=== PATIENT | female | born 1985 | race Two or more races ===

== ENCOUNTER 2018-04-15 21:52 | Emergency (ER) | payer OTHER ==
[2018-04-15 22:38] LABS: U PREG PATIENT POSITIVE (NEG)
[2018-04-15 22:39] LABS: NEG OBC UR NEG; POS OBC UR POS
[2018-04-15 23:00] LABS: ADD MAN DIFF? NO
[2018-04-15 23:11] LABS: BASO # 0.1 x10^3/uL (0.0-0.2); BASO % 1 % (0-3); EOS # 0.2 x10^3/uL (0.0-0.7); EOS % 2 % (0-3); HEMATOCRIT 37.1 % (36.0-47.0); HEMOGLOBIN 12.1 g/dL (12.0-15.5); LYMPH % 23 % (24-48); MEAN CORPUSCULAR HEMOGLOBIN 23 pg (25-35); MEAN CORPUSCULAR HGB CONC 33 g/dL (31-37); MEAN CORPUSCULAR VOLUME 72 fL (79-100); MONO # 0.8 x10^3/uL (0.0-1.1); MONO % 6 % (0-9); NEUT # 8.9 x10^3uL (1.8-7.7); NEUT % 68 % (31-73); PLATELET COUNT 229 x10^3/uL (140-400); RED BLOOD COUNT 5.17 x10^6/uL (3.50-5.40); RED CELL DISTRIBUTION WIDTH 14.9 % (11.5-14.5); WHITE BLOOD COUNT 13.1 x10^3/uL (4.0-11.0)
[2018-04-15 23:18] LABS: BILIRUBIN,URINE NEGATIVE (NEG); CLARITY,URINE CLEAR; COLOR,URINE YELLOW; GLUCOSE,URINE NEGATIVE (NEG); NITRITE,URINE NEGATIVE (NEG); PROTEIN,URINE NEGATIVE (NEG-TRACE); UROBILINOGEN,URINE 0.2 mg/dL (0.2 mg/dL)
[2018-04-15 23:25] LABS: ANION GAP 9 (6-14); BLOOD UREA NITROGEN 10 mg/dL (7-20); CALCIUM 9.3 mg/dL (8.5-10.1); CARBON DIOXIDE 25 mmol/L (21-32); CHLORIDE 103 mmol/L (98-107); CREATININE 0.6 mg/dL (0.6-1.0); GFR 115.9; GLUCOSE 90 mg/dL (70-99); POTASSIUM 3.5 mmol/L (3.5-5.1); SODIUM 137 mmol/L (136-145)
[2018-04-15 23:39] LABS: BACTERIA,URINE 0 /HPF (0-FEW); RBC,URINE OCC /HPF (0-2); WBC,URINE OCC /HPF (0-4)
[2018-04-15 23:40] LABS: SQUAMOUS EPITHELIAL CELL,UR FEW /LPF
[2018-04-16 00:02] LABS: D-DIMER 0.29 ug/mlFEU (0.00-0.50)
== END 2018-04-16 00:55 | disposition home or self-care (01) ==
LOC: ER 04-16 00:55
DX: R07.89 Other chest pain (principal); R51 Headache; Z33.1 Pregnant state, incidental
CPT/HCPCS: 36415; 80048; 81001; 81025; 85025; 85379; 93005; 99285-25

== ENCOUNTER 2018-06-30 22:52 | Observation (INO) | payer SELFPAY ==
[2018-04-16 00:34] VITALS: BP 102/66
[~2018-06-30 22:52] MED LIST: PNV1TABL31 PO
[2018-06-30] MEDS ORDERED: MAG HYDROX/ALUMINUM HYD/SIMETH 30 ML ORAL.SUSP PO PRN (23:00)
[2018-06-30] MEDS ORDERED: ONDANSETRON PF 4 MG/2 ML VIAL. IV PRN (23:00)
[2018-06-30] MEDS ORDERED: IV RINGERS,LACTATED 1000ML 1,000 ML IV PRN (23:00)
[2018-06-30 23:21] LABS: BILIRUBIN,URINE NEGATIVE (NEG); CLARITY,URINE CLOUDY; COLOR,URINE YELLOW; NITRITE,URINE POSITIVE (NEG); PROTEIN,URINE 100 mg/dL (NEG-TRACE); UROBILINOGEN,URINE 0.2 mg/dL (0.2 mg/dL)
[2018-06-30 23:29] LABS: BACTERIA,URINE MANY /HPF (0-FEW); SQUAMOUS EPITHELIAL CELL,UR MOD /LPF; WBC,URINE TNTC /HPF (0-4)
[2018-06-30 23:34] LABS: AMPHETAMINE/METHAMPHETAMINE NEG (NEG); BARBITURATES NEG (NEG); BENZODIAZEPINES NEG (NEG); CANNABINOIDS NEG (NEG); COCAINE NEG (NEG); METHADONE NEG (NEG); OPIATES NEG (NEG); PHENCYCLIDINE NEG (NEG)
[2018-06-30 23:47] LABS: BASO # 0.1 x10^3/uL (0.0-0.2); BASO % 1 % (0-3); EOS # 0.2 x10^3/uL (0.0-0.7); EOS % 1 % (0-3); HEMATOCRIT 36.1 % (36.0-47.0); HEMOGLOBIN 11.8 g/dL (12.0-15.5); LYMPH % 18 % (24-48); MEAN CORPUSCULAR HEMOGLOBIN 24 pg (25-35); MEAN CORPUSCULAR HGB CONC 33 g/dL (31-37); MEAN CORPUSCULAR VOLUME 72 fL (79-100); MONO # 0.8 x10^3/uL (0.0-1.1); MONO % 5 % (0-9); NEUT # 13.2 x10^3uL (1.8-7.7); NEUT % 76 % (31-73); PLATELET COUNT 237 x10^3/uL (140-400); RED BLOOD COUNT 4.98 x10^6/uL (3.50-5.40); RED CELL DISTRIBUTION WIDTH 13.8 % (11.5-14.5); WHITE BLOOD COUNT 17.3 x10^3/uL (4.0-11.0)
[2018-07-01 03:33] LABS: % ATYL 1 % (0-0); % BANDS 2 % (0-9); % EOS 2 % (0-5); % LYMPHS 29 % (24-48); % MONOS 3 % (0-10); % SEGS 63 % (35-66)
[2018-07-01 03:34] LABS: HYPOCHROMIA SLIGHT; MICROCYTOSIS SLIGHT; PLT ESTIMATE ADEQUATE (ADEQUATE)
== END 2018-07-01 | disposition home or self-care (01) ==
LOC: 3 SO LND 22:52
PROVIDERS: ADMIT Obstetrics & Gynecology; ATTEND Obstetrics & Gynecology
DX: O26.893 Other specified pregnancy related conditions, third trimester (principal); R19.7 Diarrhea, unspecified; Z3A.22 22 weeks gestation of pregnancy
CPT/HCPCS: 36415; 80307; 81001; 85007; 85025; 86592; 86703; 86762; 86850; 86900; 86901; 87340; G0378; G0379; G0479

== ENCOUNTER 2018-07-07 13:49 | Observation (INO) | payer SELFPAY ==
[2018-04-16 00:34] VITALS: BP 102/66
[2018-07-07] MEDS ORDERED: IV RINGERS,LACTATED 1000ML 1,000 ML IV SCH (14:29)
[2018-07-07 14:42] LABS: BILIRUBIN,URINE NEGATIVE (NEG); CLARITY,URINE CLOUDY; COLOR,URINE YELLOW; NITRITE,URINE POSITIVE (NEG); PH,URINE 6.5; PROTEIN,URINE >=300 mg/dL (NEG-TRACE); UROBILINOGEN,URINE 0.2 mg/dL (0.2 mg/dL)
[2018-07-07 14:49] LABS: BACTERIA,URINE MANY /HPF (0-FEW); SQUAMOUS EPITHELIAL CELL,UR FEW /LPF; WBC,URINE >40 /HPF (0-4)
[2018-07-07 14:53] LABS: RBC,URINE 20-40 /HPF (0-2)
[2018-07-07] MEDS ORDERED: cefTRIAXone IM 1 GM VIAL IM ONE (16:30)
[2018-07-07] MEDS ORDERED: ACETAMINOPHEN 500 MG TABLET PO ONE (17:00)
--- NOTE | 2018-07-07 17:21 | RAD ---
Exam performed: OB sonogram greater than 14 weeks. History: Patient is unsure of dates Date of Service: 07/07/2018 ,comparison: None available. Technique: Transabdominal. Findings: Single intrauterine fetus is seen in cephalic presentation.The maturity is as follows. BPD 4.76 cm (20 weeks and 3 days) Head circumference 19.07 cm (21 weeks and 2 days) Abdominal circumference 18.0 cm (22 weeks and 6 days) Femur length 3.95 cm (22 weeks and 5 days) HC to AC ratio 1.06 . heart rate measures 145 beats per minute. There is adequate amniotic fluid volume . Composite maturity is 21 weeks and 6 days , corresponding to the CHULA off to 2018. Cervix measures 4.9 cm. Estimated weight is 513 grams. Placenta is posterior and partially covering the internal os. Anatomical survey was not performed. Impression: Single live intrauterine fetus in cephalic presentation of maturity 21 weeks and 6 days. Partial placenta previa. Attention on follow-up exams. Electronically signed by: Tonie Hutchins MD (07/07/2018 5:18 PM) [facility]
== END 2018-07-07 17:25 | disposition home or self-care (01) ==
LOC: 3 SO LND 13:49
PROVIDERS: ADMIT Obstetrics & Gynecology; ATTEND Obstetrics & Gynecology
DX: O46.92 Antepartum hemorrhage, unspecified, second trimester (principal); O99.89 Other specified diseases and conditions complicating pregnancy, childbirth and the puerperium; M54.9 Dorsalgia, unspecified; Z3A.23 23 weeks gestation of pregnancy
CPT/HCPCS: 76815; 81001; 87086; 87186; 96372; G0378; G0379; J0696

== ENCOUNTER 2018-11-09 00:47 | Inpatient (IN) | payer SELFPAY ==
[~2018-11-09] VITALS: Ht 150.5 cm; Wt 75.1 kg
[2018-11-09 00:45] VITALS: BP 103/71
[2018-11-09 02:05] LABS: BILIRUBIN,URINE NEGATIVE (NEG); CLARITY,URINE CLEAR; COLOR,URINE YELLOW; NITRITE,URINE POSITIVE (NEG); PROTEIN,URINE NEGATIVE (NEG-TRACE); UROBILINOGEN,URINE 0.2 mg/dL (0.2 mg/dL)
[2018-11-09 02:13] LABS: BARBITURATES NEG (NEG); BENZODIAZEPINES NEG (NEG); CANNABINOIDS NEG (NEG); COCAINE NEG (NEG); METHADONE NEG (NEG); OPIATES NEG (NEG); PHENCYCLIDINE NEG (NEG)
[2018-11-09 02:14] LABS: AMPHETAMINE/METHAMPHETAMINE NEG (NEG)
[2018-11-09 02:18] LABS: BACTERIA,URINE MODERATE /HPF (0-FEW); RBC,URINE OCC /HPF (0-2); SQUAMOUS EPITHELIAL CELL,UR MOD /LPF
--- NOTE | 2018-11-09 02:53 | RAD ---
INDICATION: SPOTTING COMPARISON: June 2018 TECHNIQUE: Grayscale and color ultrasound images uterus and adnexa. Transabdominal and transvaginal images obtained. FINDINGS: Intrauterine is identified. Vertex presentation at time of exam. Fluid in stomach. kidneys are seen. Fluid within bladder. heartbeat 132. Amniotic fluid index 7.9. Placenta is posterior and low-lying. Tip of the placenta appears close to the internal os. Estimated gestational age is 37 weeks and 5 days with estimated due date of 11/25/2018. Estimated weight 3241 g. IMPRESSION: 1. Intrauterine is identified with a positive heartbeat. 2. The placenta is posterior in location and low lying with the placental age close to the internal os. Continued follow-up will be needed given this finding. Electronically signed by: Juvenal Mccoy MD (11/09/2018 2:50 AM) [facility]
[2018-11-09] MEDS ORDERED: IBUPROFEN 400 MG TABLET. PO PRN (03:45)
[2018-11-09] MEDS ORDERED: TERBUTALINE 1 MG/ML VIAL. SQ PRN (03:45)
[2018-11-09] MEDS ORDERED: ONDANSETRON PF 4 MG/2 ML VIAL. IV PRN ×2 (03:45→10:45)
[2018-11-09] MEDS ORDERED: ACETAMINOPHEN 325 MG TABLET. PO PRN (03:45)
[2018-11-09] MEDS ORDERED: NALBUPHINE 10 MG/ML AMPUL. IV PRN ×2 (03:45)
[2018-11-09] MEDS ORDERED: OXYTOCIN 30 UNIT/500 ML PREMIX 500 ML IV PRN ×2 (03:45→10:45)
[2018-11-09] MEDS ORDERED: CITRIC ACID/SODIUM CITRATE 30 ML SOLUTION. PO PRN (03:45)
[2018-11-09] MEDS ORDERED: MAG HYDROX/ALUMINUM HYD/SIMETH 30 ML ORAL.SUSP PO PRN ×2 (03:45→10:45)
[2018-11-09] MEDS ORDERED: LIDOCAINE 1% PF 30 ML VIAL. INJ PRN (03:45)
[2018-11-09] MEDS ORDERED: 0.9 % SODIUM CHLORIDE 10 ML DISP.SYRIN. IV PRN ×2 (03:45→10:45)
[2018-11-09] MEDS: IV RINGERS,LACTATED 1000ML 1,000 ML IV SCH ×6 (04:25→23:53)
[2018-11-09 04:32] LABS: BASO % 0 % (0-3); EOS # 0.1 x10^3/uL (0.0-0.7); EOS % 1 % (0-3); HEMATOCRIT 36.9 % (36.0-47.0); HEMOGLOBIN 11.7 g/dL (12.0-15.5); LYMPH # 2.7 x10^3/uL (1.0-4.8); LYMPH % 28 % (24-48); MEAN CORPUSCULAR HEMOGLOBIN 22 pg (25-35); MEAN CORPUSCULAR HGB CONC 32 g/dL (31-37); MEAN CORPUSCULAR VOLUME 70 fL (79-100); MONO # 0.4 x10^3/uL (0.0-1.1); MONO % 4 % (0-9); NEUT # 6.3 x10^3uL (1.8-7.7); NEUT % 67 % (31-73); PLATELET COUNT 175 x10^3/uL (140-400); RED BLOOD COUNT 5.27 x10^6/uL (3.50-5.40); WHITE BLOOD COUNT 9.4 x10^3/uL (4.0-11.0)
[2018-11-09 07:09] LABS: PLT ESTIMATE ADEQUATE (ADEQUATE)
[2018-11-09 07:10] LABS: HYPOCHROMIA MOD
[2018-11-09 07:11] LABS: MICROCYTOSIS MOD
[2018-11-09] MEDS ORDERED: METHYLERGONOVINE MALEATE 0.2 MG/ML VIAL. IM ONE (08:30)
[2018-11-09] MEDS ORDERED: CITRIC ACID/SODIUM CITRATE 30 ML SOLUTION. PO ONE (08:30)
[2018-11-09] MEDS ORDERED: miSOPROStol 200 MCG TABLET PR ONE (08:30)
[2018-11-09] MEDS ORDERED: PENICILLIN G K 5,000,000 UNIT in IV DEXTROSE 5% 100ML 100 ML IV ONE (09:00)
--- NOTE | 2018-11-09 09:34 | PDOC1 ---
OB - History Hx of Present Care: None Ultrasounds: Abnormal US findings (marginal placenta previa) Obstetrical Complications: Other (placenta previa) Medical Complications: None Past Family/Social History * Past Medical, Surgical, Family and Obstetric Histories reviewed from chart. Rubella: Unknown RPR/VDRL: Unknown GBS Status: Unknown HBsAG: Unknown OB - Chief Complaint & HPI Date of Admission: Date of Admission: Nov 09, 2018 at 00:47 Chief Complaint/History : 5 Para: 4 EGA: 39 Reason for admission: vaginal bleeding Indication for : other (marginal placental previa with vaginal spotting) Admission Nurse Assessment Rev: Yes OB - Admission Exam Physical Exam Vitals: VS - Last 72 Hours, by Label Date Time Temp Pulse Resp B/P (MAP) Pulse Ox O2 Delivery O2 Flow Rate FiO2 11/09/18 00:45 98.1 74 18 103/71 (82) Room Air 98.1 HEENT: Normal Heart: Regular Rate Lungs: Clear Abdomen: Gravid, Non tender, Soft Extremities: Edema Reflexes: Normal Cervical Dilatation: 1cm Effacement: 25% Station: Ballotable Membranes: Intact Heart Rate: Normal Accelerations: Accelerations Present Decelerations: No decelerations Contractions on Admission: >10 Minutes Apart Intensity: Mild Text A: 39 wks Marginal Placenta Previa Vaginal spotting P: Admit for c/s. AUGUSTO ANGEL Jr, MD Nov 09, 2018 09:34
[2018-11-09] MEDS ORDERED: MORPHINE PF 5 MG/10 ML VIAL. ONE (09:40)
[2018-11-09] MEDS ORDERED: BUPIVACAINE MPF 0.75% DEXTROSE 2 ML AMPUL. ONE (09:43)
[2018-11-09] MEDS ORDERED: NALOXONE 0.4 MG/ML VIAL. IV PRN (10:00)
[2018-11-09] MEDS ORDERED: ATROPINE 0.5 MG/5 ML DISP.SYRINGE. IV PRN (10:00)
[2018-11-09] MEDS ORDERED: OXYTOCIN 10 UNIT/ML VIAL. ONE (10:03)
[2018-11-09] MEDS ORDERED: METOCLOPRAMIDE HCL 10 MG/2 ML VIAL. ONE (10:12)
--- NOTE | 2018-11-09 10:36 | PDOC4 ---
OB Operative Note Date: Nov 09, 2018 PRE OP DIAGNOSIS: Other (Placenta previa) POST OP DIAGNOSIS: Other (same) OPERATION PERFORMED: [facility] Surgeon Dr. Farrell Anesthesia: Regional (Spinal) Blood Loss 600 ml Specimen placenta and OB Findings: Position (Vertex), Sex (Female), (8/9), Weight (3130 Gram), Nuchal Cord (x1) Complications none Additional Remarks pt. AUGUSTO Dominguez Jr, MD Nov 09, 2018 10:36
[2018-11-09] MEDS ORDERED: ZOLPIDEM 5 MG TABLET. PO PRN (10:45)
[2018-11-09] MEDS ORDERED: KETOROLAC 30 MG/ML VIAL. IV PRN (10:45)
[2018-11-09] MEDS ORDERED: diphenhydrAMINE ORAL ELIXIR 12.5 MG/5 ML ML PO PRN (10:45)
[2018-11-09] MEDS ORDERED: SIMETHICONE 80 MG TAB.CHEW PO PRN (10:45)
--- NOTE | 2018-11-09 11:12 | OP ---
DATE OF SURGERY: 11/09/2018 PREOPERATIVE DIAGNOSES: 1. A 39 weeks intrauterine . 2. Limited to no care. 3. Marginal placenta previa with bleeding. POSTOPERATIVE DIAGNOSES: 1. A 39 weeks intrauterine . 2. Limited to no care. 3. Marginal placenta previa with bleeding. PROCEDURE: Primary low transverse section. SURGEON: Augusto Farrell MD. ANESTHESIA: Spinal. ESTIMATED BLOOD LOSS: 600 mL. COMPLICATIONS: None. FINDINGS: Viable female , Apgars 8 and 9, nuchal cord x 1, weight 3138 grams. Three-vessel cord placenta delivered manually intact. SUMMARY: Term gestation, presented to Labor and Delivery with complaints of vaginal bleeding and spotting at home. The patient had vaginal spotting upon admission to the hospital. Sonogram images were reviewed and showed appearance of a marginal placenta previa. She was counseled on the risks, benefits and expectations of a primary low transverse section and voiced clear understanding to proceed. DESCRIPTION OF PROCEDURE: The patient was taken to surgery suite and placed in dorsal supine position. She was prepped with ChloraPrep and draped in sterile fashion. After adequate anesthesia, a Pfannenstiel skin incision was made with scalpel down to and through the fascia. Fascia was extended laterally using curved Mccallum scissors. The superior edge of the fascia was grasped with two Saskia clamps and dissected free of the abdominal rectus muscles using blunt dissection along with Bovie cautery. The same process took place inferiorly. The abdominal rectus muscles were dissected bluntly at the midline. Peritoneum was grasped with 2 hemostats, entered sharply with Metzenbaum scissors. This incision was extended superiorly as well as inferiorly. The Alexys ring retractor was placed. A low transverse hysterotomy incision made with scalpel down to the amniotic sac. Hysterotomy incision was then extended laterally and superiorly digitally. Amniotomy was performed with Allis clamp, which elicited moderate amount of clear fluid. With aid of fundal pressure, the infant's head was delivered in a smooth atraumatic manner. Nuchal cord x 1 was visualized and reduced. Additional fundal pressure was utilized to deliver the anterior shoulder, posterior shoulder, rest of the female . Infant was suctioned with a bulb syringe orally and nasally. Umbilical cord was clamped twice and cut and viable female infant was handed to waiting nursing staff. Umbilical cord blood was then obtained. Three-vessel cord placenta was delivered manually intact. The uterus was exteriorized and cleared of clot and debris with a moist lap. Hysterotomy incision was reapproximated using 1-0 Vicryl suture in running locked fashion and imbricated layer of 1-0 Vicryl suture in running fashion was utilized for better hemostasis. Uterus palpated firm. Fallopian tubes and ovaries appeared normal bilaterally. The uterus then returned to the abdomen. Hysterotomy incision was reviewed and hemostatic. The pericolic gutters were cleared of clot and debris with moist lap. Interceed was placed over the hysterotomy incision in an inverted T fashion. The Alexys ring retractor was removed. The peritoneum was reapproximated using #1 Vicryl suture in running fashion. Fascia was reapproximated using 0 Vicryl suture in a running fashion. Skin was reapproximated using 4-0 Vicryl suture in subcuticular manner. The patient tolerated the procedure well, was sent to recovery room in stable condition. Sponge and needle count correct x 3. AUGUSTO FARRELL MD DR: ESTRELLA/johnathon JOB#: [id number] / [id number]
[2018-11-09] MEDS: PENICILLIN G K 2,500,000 UNIT in IV DEXTROSE 5% 50 ML IV SCH ×2 (13:00→17:00)
[2018-11-09] MEDS: FERROUS SULFATE 325 MG TABLET. PO SCH (17:00)
[2018-11-09 20:20] VITALS: BP 94/52
[2018-11-09 23:58] VITALS: BP 92/60
[2018-11-10 04:45] VITALS: BP 93/61
[2018-11-10 05:07] LABS: BASO % 0 % (0-3); EOS % 0 % (0-3); HEMATOCRIT 27.3 % (36.0-47.0); HEMOGLOBIN 8.6 g/dL (12.0-15.5); LYMPH # 2.1 x10^3/uL (1.0-4.8); LYMPH % 17 % (24-48); MEAN CORPUSCULAR HEMOGLOBIN 22 pg (25-35); MEAN CORPUSCULAR HGB CONC 31 g/dL (31-37); MEAN CORPUSCULAR VOLUME 71 fL (79-100); MONO # 0.6 x10^3/uL (0.0-1.1); MONO % 5 % (0-9); NEUT # 9.4 x10^3uL (1.8-7.7); NEUT % 78 % (31-73); PLATELET COUNT 153 x10^3/uL (140-400); RED BLOOD COUNT 3.87 x10^6/uL (3.50-5.40); RED CELL DISTRIBUTION WIDTH 13.6 % (11.5-14.5); WHITE BLOOD COUNT 12.1 x10^3/uL (4.0-11.0)
[2018-11-10 11:25] VITALS: BP 101/66
[2018-11-10] MEDS: DOCUSATE SODIUM 100 MG CAPSULE. PO PRN (14:17)
[2018-11-10] MEDS: FERROUS SULFATE 325 MG TABLET. PO SCH (14:18)
[2018-11-10] MEDS: oxyCODONE/APAP 5/325 1 TAB TABLET PO PRN ×2 (14:18→20:27)
[2018-11-10 17:13] VITALS: BP 93/53
--- NOTE | 2018-11-10 17:41 | PDOC ---
OB Progress Note Date of Service 11/10/18 Time of Evaluation 1740 Notes Pt. feeling well. Pain controlled. Lab Laboratory Tests Test 11/09/18 01:30 11/09/18 03:55 11/10/18 04:40 Urine Collection Type Unknown Urine Color Yellow Urine Clarity Clear Urine pH 7.0 Urine Specific Sharon 1.010 Urine Protein Negative mg/dL (NEG-TRACE) Urine Glucose (UA) Negative mg/dL (NEG) Urine Ketones (Stick) Negative mg/dL (NEG) Urine Blood Moderate (NEG) Urine Nitrite Positive (NEG) Urine Bilirubin Negative (NEG) Urine Urobilinogen Dipstick 0.2 mg/dL (0.2 mg/dL) Urine Leukocyte Esterase Moderate (NEG) Urine RBC Occ /HPF (0-2) Urine WBC 5-10 /HPF (0-4) Urine Squamous Epithelial Cells Mod /LPF Urine Bacteria Moderate /HPF (0-FEW) Urine Opiates Screen Neg (NEG) Urine Methadone Screen Neg (NEG) Urine Barbiturates Neg (NEG) Urine Phencyclidine Screen Neg (NEG) Urine Amphetamine/Methamphetamine Neg (NEG) Urine Benzodiazepines Screen Neg (NEG) Urine Cocaine Screen Neg (NEG) Urine Cannabinoids Screen Neg (NEG) Urine Ethyl Alcohol Neg (NEG) White Blood Count 9.4 x10^3/uL (4.0-11.0) 12.1 x10^3/uL (4.0-11.0) Red Blood Count 5.27 x10^6/uL (3.50-5.40) 3.87 x10^6/uL (3.50-5.40) Hemoglobin 11.7 g/dL (12.0-15.5) 8.6 g/dL (12.0-15.5) Hematocrit 36.9 % (36.0-47.0) 27.3 % (36.0-47.0) Mean Corpuscular Volume 70 fL (79-100) 71 fL (79-100) Mean Corpuscular Hemoglobin 22 pg (25-35) 22 pg (25-35) Mean Corpuscular Hemoglobin Concent 32 g/dL (31-37) 31 g/dL (31-37) Red Cell Distribution Width 14.0 % (11.5-14.5) 13.6 % (11.5-14.5) Platelet Count 175 x10^3/uL (140-400) 153 x10^3/uL (140-400) Neutrophils (%) (Auto) 67 % (31-73) 78 % (31-73) Lymphocytes (%) (Auto) 28 % (24-48) 17 % (24-48) Monocytes (%) (Auto) 4 % (0-9) 5 % (0-9) Eosinophils (%) (Auto) 1 % (0-3) 0 % (0-3) Basophils (%) (Auto) 0 % (0-3) 0 % (0-3) Neutrophils # (Auto) 6.3 x10^3uL (1.8-7.7) 9.4 x10^3uL (1.8-7.7) Lymphocytes # (Auto) 2.7 x10^3/uL (1.0-4.8) 2.1 x10^3/uL (1.0-4.8) Monocytes # (Auto) 0.4 x10^3/uL (0.0-1.1) 0.6 x10^3/uL (0.0-1.1) Eosinophils # (Auto) 0.1 x10^3/uL (0.0-0.7) 0.0 x10^3/uL (0.0-0.7) Basophils # (Auto) 0.0 x10^3/uL (0.0-0.2) 0.0 x10^3/uL (0.0-0.2) Platelet Estimate Adequate (ADEQUATE) Large Platelets Few Hypochromasia Mod Microcytosis Mod Treponema pallidum Antibody Nonreactive (Nonreactive) Laboratory Tests Test 11/10/18 04:40 White Blood Count 12.1 x10^3/uL (4.0-11.0) Red Blood Count 3.87 x10^6/uL (3.50-5.40) Hemoglobin 8.6 g/dL (12.0-15.5) Hematocrit 27.3 % (36.0-47.0) Mean Corpuscular Volume 71 fL (79-100) Mean Corpuscular Hemoglobin 22 pg (25-35) Mean Corpuscular Hemoglobin Concent 31 g/dL (31-37) Red Cell Distribution Width 13.6 % (11.5-14.5) Platelet Count 153 x10^3/uL (140-400) Neutrophils (%) (Auto) 78 % (31-73) Lymphocytes (%) (Auto) 17 % (24-48) Monocytes (%) (Auto) 5 % (0-9) Eosinophils (%) (Auto) 0 % (0-3) Basophils (%) (Auto) 0 % (0-3) Neutrophils # (Auto) 9.4 x10^3uL (1.8-7.7) Lymphocytes # (Auto) 2.1 x10^3/uL (1.0-4.8) Monocytes # (Auto) 0.6 x10^3/uL (0.0-1.1) Eosinophils # (Auto) 0.0 x10^3/uL (0.0-0.7) Basophils # (Auto) 0.0 x10^3/uL (0.0-0.2) Medications Current Medications Sodium Chloride (Normal Saline Flush) 3 ml QSHIFT PRN IV AFTER MEDS AND BLOOD DRAWS; Start 11/09/18 at 03:45; Stop 11/10/18 at 09:33; Status DC Ringer's Solution 1,000 ml @ 125 mls/hr Q8H IV Last administered on 11/09/18at 23:53; Start 11/09/18 at 03:42; Stop 11/10/18 at 09:33; Status DC Nalbuphine HCl (Nubain) 5 mg PRN Q1HR PRN IV Mild to moderate labor pain; Start 11/09/18 at 03:45; Stop 11/10/18 at 09:35; Status DC Nalbuphine HCl (Nubain) 10 mg PRN Q1HR PRN IV Severe labor pain; Start at 03:45; Stop 11/10/18 at 09:35; Status DC Acetaminophen (Tylenol) 650 mg PRN Q6HRS PRN PO MILD PAIN / TEMP; Start at 03:45 Ondansetron HCl (Zofran) 4 mg PRN Q4HRS PRN IV NAUSEA/VOMITING 1ST CHOICE; Start 11/09/18 at 03:45; Stop 11/09/18 at 11:04; Status DC Al Hydroxide/Mg Hydroxide (Mylanta Plus Xs) 30 ml PRN Q4HRS PRN PO HEARTBURN / GAS; Start 11/09/18 at 03:45; Stop 11/10/18 at 13:19; Status DC Citric Acid/ Sodium Citrate (Bicitra) 30 ml 1X PRN PRN PO DYSPEPSIA; Start at 03:45; Stop 11/10/18 at 03:44; Status DC Terbutaline Sulfate (Brethine) 0.25 mg 1X PRN PRN SQ SEE COMMENTS; Start at 03:45; Stop 11/10/18 at 03:44; Status DC Lidocaine HCl (Xylocaine 1% Pf 30ml Vial) 30 ml 1X PRN PRN INJ SEE COMMENTS; Start 11/09/18 at 03:45; Stop 11/10/18 at 09:35; Status DC Oxytocin/Sodium Chloride 500 ml @ 0 mls/hr CONT PRN PRN IV Post delivery bleeding; Start 11/09/18 at 03:45; Stop 11/10/18 at 09:33; Status DC Ibuprofen (Motrin) 800 mg PRN Q6HRS PRN PO MODERATE PAIN; Start 11/09/18 at 03: 45; Stop 11/10/18 at 13:21; Status DC Penicillin G Potassium [id number] unit/Dextrose 100 ml @ 100 mls/hr 1X ONCE IV ; Start 11/09/18 at 09:00; Stop 11/10/18 at 09:33; Status DC Penicillin G Potassium [id number] unit/Dextrose 50 ml @ 100 mls/hr Q4H IV ; Start 11/09/18 at 13:00; Stop 11/09/18 at 19:35; Status DC Cefazolin Sodium/ Dextrose 50 ml @ 100 mls/hr 1X ONCE IV Last administered on 11/09/18at 09:17; Start 11/09/18 at 08:30; Stop 11/09/18 at 08:59; Status DC Citric Acid/ Sodium Citrate (Bicitra) 30 ml 1X ONCE PO Last administered on at 09:17; Start 11/09/18 at 08:30; Stop 11/09/18 at 08:34; Status DC Misoprostol (Cytotec 200mcg Tab) 800 mcg 1X ONCE NV ; Start 11/09/18 at 08:30; Stop 11/09/18 at 08:34; Status DC Methylergonovine Maleate (Methergine) 0.2 mg 1X ONCE IM ; Start 11/09/18 at 08: 30; Stop 11/09/18 at 08:34; Status DC Ephedrine Sulfate (Akovaz) 50 mg STK-MED ONCE .ROUTE ; Start 11/09/18 at 09:39; Stop 11/10/18 at 09:35; Status DC Morphine Sulfate (Morphine Preservative Free) 5 mg STK-MED ONCE .ROUTE ; Start 11/09/18 at 09:40; Stop 11/10/18 at 09:35; Status DC Bupivacaine HCl/ Dextrose (Marcaine Spinal 0.75%) 2 ml STK-MED ONCE .ROUTE ; Start 11/09/18 at 09:43; Stop 11/10/18 at 09:33; Status DC Ringer's Solution 1,000 ml @ 125 mls/hr Q8H IV ; Start 11/09/18 at 09:53; Stop 11/09/18 at 19:35; Status DC Atropine Sulfate (ATROPINE 0.5mg SYRINGE) 0.5 mg PRN 1X PRN IV SEE COMMENTS; Start 11/09/18 at 10:00; Stop 11/10/18 at 09:33; Status DC Naloxone HCl (Narcan) 0.04 mg PRN Q2MIN PRN IV SEE COMMENTS; Start 11/09/18 at 10:00; Stop 11/10/18 at 09:59; Status DC Oxytocin (Pitocin) 10 unit STK-MED ONCE .ROUTE ; Start 11/09/18 at 10:03; Stop 11/10/18 at 09:35; Status DC Metoclopramide HCl (Reglan Vial) 10 mg STK-MED ONCE .ROUTE ; Start 11/09/18 at 10:12; Stop 11/10/18 at 09:35; Status DC Sodium Chloride (Normal Saline Flush) 3 ml QSHIFT PRN IV AFTER MEDS AND BLOOD DRAWS; Start 11/09/18 at 10:45; Stop 11/10/18 at 09:33; Status DC Oxytocin/Sodium Chloride 500 ml @ 125 mls/hr CONT PRN IV EXCESSIVE POST- BLEEDING; Start 11/09/18 at 10:45; Stop 11/09/18 at 18:44; Status DC Ibuprofen (Motrin) 800 mg PRN Q4HRS PRN PO INFLAMMATION; Start 11/09/18 at 10: 45 Ondansetron HCl (Zofran) 4 mg PRN Q6HRS PRN IV NAUSEA/VOMITING Last administered on 11/09/18at 16:39; Start 11/09/18 at 10:45; Stop 11/10/18 at 09:35 ; Status DC Docusate Sodium (Colace) 100 mg PRN BID PRN PO CONSTIPATION Last administered on 11/10/18at 14:17; Start 11/09/18 at 10:45 Al Hydroxide/Mg Hydroxide (Mylanta Plus Xs) 30 ml PRN Q4HRS PRN PO HEARTBURN / GAS; Start 11/09/18 at 10:45 Simethicone (Gas-X) 80 mg PRN AFTMEALHC PRN PO GAS / BLOATING; Start 11/09/18 at 10:45 Diphenhydramine HCl (Benadryl Oral Elixir) 12.5 mg PRN Q6HRS PRN PO ITCHING Last administered on 11/09/18at 16:38; Start 11/09/18 at 10:45 Ferrous Sulfate (Feosol) 325 mg BIDWMEALS PO Last administered on 11/10/18at 14: 18; Start 11/09/18 at 17:00 Zolpidem Tartrate (Ambien) 5 mg PRN QHS PRN PO INSOMNIA, MAY REPEAT X1; Start 11/09/18 at 10:45 Oxycodone/ Acetaminophen (Percocet 5/325) 2 tab PRN Q4HRS PRN PO MODERATE PAIN , SEVERE PAIN Last administered on 11/10/18at 14:18; Start 11/09/18 at 10:45 Ketorolac Tromethamine (Toradol 30mg Vial) 30 mg PRN Q6HRS PRN IV PAIN Last administered on 11/09/18at 12:29; Start 11/09/18 at 10:45; Stop 11/10/18 at 09:35 ; Status DC Active Scripts Active Plus Tablet (Pnv With Ca,No.72/Iron/Fa) 1 Each Tablet 1 Tab PO DAILY Exam Abd: soft, mild tenderness, fundus firm Incision site: clean, dry and intact. Assessment POD#1 s/p repeat c/s Plan of Care: Continue current Tx, Mgmt AUGUSTO ANGEL Jr, MD Nov 10, 2018 17:41
[2018-11-10] MEDS: IBUPROFEN 400 MG TABLET. PO PRN (20:27)
[2018-11-10 20:30] VITALS: BP 100/65
[2018-11-11 05:39] VITALS: BP 91/60
[2018-11-11] MEDS: oxyCODONE/APAP 5/325 1 TAB TABLET PO PRN ×3 (08:09→21:06)
[2018-11-11] MEDS: IBUPROFEN 400 MG TABLET. PO PRN ×2 (08:09→17:34)
[2018-11-11] MEDS: FERROUS SULFATE 325 MG TABLET. PO SCH ×2 (08:09→21:09)
[2018-11-11 11:30] VITALS: BP 101/64
--- NOTE | 2018-11-11 16:58 | PDOC ---
OB Progress Note Date of Service 11/11/18 Time of Evaluation 1655 Notes Pt. feeling well. No complaints. Lab Laboratory Tests Test 11/10/18 04:40 White Blood Count 12.1 x10^3/uL (4.0-11.0) Red Blood Count 3.87 x10^6/uL (3.50-5.40) Hemoglobin 8.6 g/dL (12.0-15.5) Hematocrit 27.3 % (36.0-47.0) Mean Corpuscular Volume 71 fL (79-100) Mean Corpuscular Hemoglobin 22 pg (25-35) Mean Corpuscular Hemoglobin Concent 31 g/dL (31-37) Red Cell Distribution Width 13.6 % (11.5-14.5) Platelet Count 153 x10^3/uL (140-400) Neutrophils (%) (Auto) 78 % (31-73) Lymphocytes (%) (Auto) 17 % (24-48) Monocytes (%) (Auto) 5 % (0-9) Eosinophils (%) (Auto) 0 % (0-3) Basophils (%) (Auto) 0 % (0-3) Neutrophils # (Auto) 9.4 x10^3uL (1.8-7.7) Lymphocytes # (Auto) 2.1 x10^3/uL (1.0-4.8) Monocytes # (Auto) 0.6 x10^3/uL (0.0-1.1) Eosinophils # (Auto) 0.0 x10^3/uL (0.0-0.7) Basophils # (Auto) 0.0 x10^3/uL (0.0-0.2) Medications Current Medications Sodium Chloride (Normal Saline Flush) 3 ml QSHIFT PRN IV AFTER MEDS AND BLOOD DRAWS; Start 11/09/18 at 03:45; Stop 11/10/18 at 09:33; Status DC Ringer's Solution 1,000 ml @ 125 mls/hr Q8H IV Last administered on 11/09/18at 23:53; Start 11/09/18 at 03:42; Stop 11/10/18 at 09:33; Status DC Nalbuphine HCl (Nubain) 5 mg PRN Q1HR PRN IV Mild to moderate labor pain; Start 11/09/18 at 03:45; Stop 11/10/18 at 09:35; Status DC Nalbuphine HCl (Nubain) 10 mg PRN Q1HR PRN IV Severe labor pain; Start at 03:45; Stop 11/10/18 at 09:35; Status DC Acetaminophen (Tylenol) 650 mg PRN Q6HRS PRN PO MILD PAIN / TEMP; Start at 03:45 Ondansetron HCl (Zofran) 4 mg PRN Q4HRS PRN IV NAUSEA/VOMITING 1ST CHOICE; Start 11/09/18 at 03:45; Stop 11/09/18 at 11:04; Status DC Al Hydroxide/Mg Hydroxide (Mylanta Plus Xs) 30 ml PRN Q4HRS PRN PO HEARTBURN / GAS; Start 11/09/18 at 03:45; Stop 11/10/18 at 13:19; Status DC Citric Acid/ Sodium Citrate (Bicitra) 30 ml 1X PRN PRN PO DYSPEPSIA; Start at 03:45; Stop 11/10/18 at 03:44; Status DC Terbutaline Sulfate (Brethine) 0.25 mg 1X PRN PRN SQ SEE COMMENTS; Start at 03:45; Stop 11/10/18 at 03:44; Status DC Lidocaine HCl (Xylocaine 1% Pf 30ml Vial) 30 ml 1X PRN PRN INJ SEE COMMENTS; Start 11/09/18 at 03:45; Stop 11/10/18 at 09:35; Status DC Oxytocin/Sodium Chloride 500 ml @ 0 mls/hr CONT PRN PRN IV Post delivery bleeding; Start 11/09/18 at 03:45; Stop 11/10/18 at 09:33; Status DC Ibuprofen (Motrin) 800 mg PRN Q6HRS PRN PO MODERATE PAIN; Start 11/09/18 at 03: 45; Stop 11/10/18 at 13:21; Status DC Penicillin G Potassium [id number] unit/Dextrose 100 ml @ 100 mls/hr 1X ONCE IV ; Start 11/09/18 at 09:00; Stop 11/10/18 at 09:33; Status DC Penicillin G Potassium [id number] unit/Dextrose 50 ml @ 100 mls/hr Q4H IV ; Start 11/09/18 at 13:00; Stop 11/09/18 at 19:35; Status DC Cefazolin Sodium/ Dextrose 50 ml @ 100 mls/hr 1X ONCE IV Last administered on 11/09/18at 09:17; Start 11/09/18 at 08:30; Stop 11/09/18 at 08:59; Status DC Citric Acid/ Sodium Citrate (Bicitra) 30 ml 1X ONCE PO Last administered on at 09:17; Start 11/09/18 at 08:30; Stop 11/09/18 at 08:34; Status DC Misoprostol (Cytotec 200mcg Tab) 800 mcg 1X ONCE [place] ; Start 11/09/18 at 08:30; Stop 11/09/18 at 08:34; Status DC Methylergonovine Maleate (Methergine) 0.2 mg 1X ONCE IM ; Start 11/09/18 at 08: 30; Stop 11/09/18 at 08:34; Status DC Ephedrine Sulfate (Akovaz) 50 mg STK-MED ONCE .ROUTE ; Start 11/09/18 at 09:39; Stop 11/10/18 at 09:35; Status DC Morphine Sulfate (Morphine Preservative Free) 5 mg STK-MED ONCE .ROUTE ; Start 11/09/18 at 09:40; Stop 11/10/18 at 09:35; Status DC Bupivacaine HCl/ Dextrose (Marcaine Spinal 0.75%) 2 ml STK-MED ONCE .ROUTE ; Start 11/09/18 at 09:43; Stop 11/10/18 at 09:33; Status DC Ringer's Solution 1,000 ml @ 125 mls/hr Q8H IV ; Start 11/09/18 at 09:53; Stop 11/09/18 at 19:35; Status DC Atropine Sulfate (ATROPINE 0.5mg SYRINGE) 0.5 mg PRN 1X PRN IV SEE COMMENTS; Start 11/09/18 at 10:00; Stop 11/10/18 at 09:33; Status DC Naloxone HCl (Narcan) 0.04 mg PRN Q2MIN PRN IV SEE COMMENTS; Start 11/09/18 at 10:00; Stop 11/10/18 at 09:59; Status DC Oxytocin (Pitocin) 10 unit STK-MED ONCE .ROUTE ; Start 11/09/18 at 10:03; Stop 11/10/18 at 09:35; Status DC Metoclopramide HCl (Reglan Vial) 10 mg STK-MED ONCE .ROUTE ; Start 11/09/18 at 10:12; Stop 11/10/18 at 09:35; Status DC Sodium Chloride (Normal Saline Flush) 3 ml QSHIFT PRN IV AFTER MEDS AND BLOOD DRAWS; Start 11/09/18 at 10:45; Stop 11/10/18 at 09:33; Status DC Oxytocin/Sodium Chloride 500 ml @ 125 mls/hr CONT PRN IV EXCESSIVE POST- BLEEDING; Start 11/09/18 at 10:45; Stop 11/09/18 at 18:44; Status DC Ibuprofen (Motrin) 800 mg PRN Q4HRS PRN PO INFLAMMATION Last administered on at 08:09; Start 11/09/18 at 10:45 Ondansetron HCl (Zofran) 4 mg PRN Q6HRS PRN IV NAUSEA/VOMITING Last administered on 11/09/18at 16:39; Start 11/09/18 at 10:45; Stop 11/10/18 at 09:35 ; Status DC Docusate Sodium (Colace) 100 mg PRN BID PRN PO CONSTIPATION Last administered on 11/10/18at 14:17; Start 11/09/18 at 10:45 Al Hydroxide/Mg Hydroxide (Mylanta Plus Xs) 30 ml PRN Q4HRS PRN PO HEARTBURN / GAS; Start 11/09/18 at 10:45 Simethicone (Gas-X) 80 mg PRN AFTMEALHC PRN PO GAS / BLOATING Last administered on 11/10/18at 21:25; Start 11/09/18 at 10:45 Diphenhydramine HCl (Benadryl Oral Elixir) 12.5 mg PRN Q6HRS PRN PO ITCHING Last administered on 11/09/18at 16:38; Start 11/09/18 at 10:45 Ferrous Sulfate (Feosol) 325 mg BIDWMEALS PO Last administered on 11/11/18at 08: 09; Start 11/09/18 at 17:00 Zolpidem Tartrate (Ambien) 5 mg PRN QHS PRN PO INSOMNIA, MAY REPEAT X1; Start 11/09/18 at 10:45 Oxycodone/ Acetaminophen (Percocet 5/325) 2 tab PRN Q4HRS PRN PO MODERATE PAIN , SEVERE PAIN Last administered on 11/11/18at 14:15; Start 11/09/18 at 10:45 Ketorolac Tromethamine (Toradol 30mg Vial) 30 mg PRN Q6HRS PRN IV PAIN Last administered on 11/09/18at 12:29; Start 11/09/18 at 10:45; Stop 11/10/18 at 09:35 ; Status DC Active Scripts Active Plus Tablet (Pnv With Ca,No.72/Iron/Fa) 1 Each Tablet 1 Tab PO DAILY Exam Abd: soft, non tender, fundus firm Incision site: clean, dry and intact Assessment POD#2 s/p repeat c/s Plan of Care: Continue current Tx, Mgmt AUGUSTO ANGEL Jr, MD Nov 11, 2018 16:58
[2018-11-11 17:42] VITALS: BP 99/62
[2018-11-11] MEDS: DOCUSATE SODIUM 100 MG CAPSULE. PO PRN (21:06)
[2018-11-11 21:27] VITALS: BP 93/57
[2018-11-12] MEDS ORDERED: INFLUENZA VAX SCREEN BY RX. MC PRN
[2018-11-12 06:27] VITALS: BP 90/53
--- NOTE | 2018-11-12 07:13 | DISCH ---
DISCHARGE INSTRUCTIONS Condition on Discharge Condition on Discharge: Stable Activity After Discharge Activity Instructions for Disc: Activity as tolerated Lifting Instructions after Dis: No heavy lifting Driving Instructions after Dis: No driving for 2 weeks Diet after Discharge Diet after Discharge: Regular Contacting the DRPaul after DC Call your doctor for: If your condition worsens Follow-Up Follow up with: Dr. Farrell in 2 weeks. AUGUSTO FARRELL Jr, MD Nov 12, 2018 07:13
--- NOTE | 2018-11-12 07:13 | PDOC3 ---
OB DISCHARGE SUMMARY DATE OF ADMISSION: 11/09/18 DATE OF DISCHARGE: 11/12/18 REASON FOR ADMISSION: Onset of labor, Vaginal bleeding (placenta previa; partial) INTRAPARTUM PROCEDURES: : Low Cerv Trans DISCHARGE DIAGNOSIS: Placenta Previa, Term Delivered DISCHARGE INFORMATION: Activity (ad courtney), Diet (regular), Instructions (pelvic rest x 6 wks, no driving x 2 wks, no lifting > 20 lbs x 6 wks) HOSPITAL COURSE Term gestation with placenta previa delivered via section without complications. AUGUSTO ANGEL Jr, MD Nov 12, 2018 07:13
[2018-11-12] MEDS ORDERED: OXYC1TAB15 PO (07:16)
[2018-11-12] MEDS ORDERED: IBUP-1027 PO (07:16)
[2018-11-12] MEDS ORDERED: DOCU-109 PO (07:16)
[2018-11-12] MEDS ORDERED: FERR325T72 PO (07:16)
[2018-11-12] MEDS: DOCUSATE SODIUM 100 MG CAPSULE. PO PRN (08:14)
[2018-11-12] MEDS: IBUPROFEN 400 MG TABLET. PO PRN ×2 (08:15→13:46)
[2018-11-12] MEDS: FERROUS SULFATE 325 MG TABLET. PO SCH (08:15)
[2018-11-12] MEDS ORDERED: MAGNESIUM HYDROXIDE 2,400 MG/30 ML ORAL.SUSP. PO PRN (08:30)
[2018-11-12] MEDS ORDERED: DIPHTH,PERTUSS(ACELL),TET TOX 0.5 ML DISP.SYRIN. VAX IM ONE (09:00)
[2018-11-12 12:11] VITALS: BP 98/63
[2018-11-12 13:36] VITALS: BP 103/66
[2018-11-12] MEDS: oxyCODONE/APAP 5/325 1 TAB TABLET PO PRN (13:47)
== END 2018-11-12 14:05 | disposition home or self-care (01) | DRG 788 ==
LOC: OBSVTOIN 00:47 → 3 SO LND 00:47 → 3 NORTH 13:38
PROVIDERS: ADMIT Obstetrics & Gynecology; ATTEND Obstetrics & Gynecology
PROC: 10D00Z1 Extraction of Products of Conception, Low, Open Approach (ICD-10-PCS; principal; 2018-11-09)
DX: O44.33 Partial placenta previa with hemorrhage, third trimester (principal); O69.81X0 Labor and delivery complicated by cord around neck, without compression, not applicable or unspecified; Z3A.39 39 weeks gestation of pregnancy; Z37.0 Single live birth
CPT/HCPCS: 36415; 76805; 80307; 81001; 85025; 86592; 86850; 86900; 86901; 87086; 90471; 90715; 90756; C1781; J0696; J1885; J2270; J2405; J2590; J2765; J7030; J7120; G0378; Q2035